=== PATIENT | female | born 2000 | race Caucasian/White ===

== ENCOUNTER 2023-10-21 06:45 | Emergency (ER) | payer BC, OTHER ==
[2023-10-21] MEDS ORDERED: Ondansetron ODT 4 MG TAB ONE ×2 (07:03→07:42)
[2023-10-21] MEDS ORDERED: Dicyclomine 20 MG/2 ML VIAL ONE (07:31)
[2023-10-21] MEDS ORDERED: Metoclopramide HCl 10 MG (2 mL) VIAL ONE (08:06)
[2023-10-21] MEDS ORDERED: Sodium Chloride 0.9% 1,000 ML ONE (08:06)
== END 2023-10-21 09:31 | disposition home or self-care (01) ==
LOC: MADERS 06:45
DX: A08.4 Viral intestinal infection, unspecified (principal); F17.290 Nicotine dependence, other tobacco product, uncomplicated
CPT/HCPCS: 87804; 96365; 96372; J2765; J7050; Q0162